=== PATIENT | male | born 1940 | race Caucasian/White ===

== ENCOUNTER → 2025-01-14 12:44 | Outpatient (REF) | payer MEDICARE, SELFPAY | LOC: HWRAD 12:44 | PROVIDERS: ATTENDING PHYSICIAN Student in an Organized Health Care Education/Training Program; FAMILY PHYSICIAN Internal Medicine | DX: M54.50 Low back pain, unspecified (principal); M47.816 Spondylosis without myelopathy or radiculopathy, lumbar region | CPT/HCPCS: 72131 ==